=== PATIENT | male | born 1965 | race Caucasian/White ===

== ENCOUNTER 2016-08-11 09:03 | Emergency (ER) | payer OTHER ==
[~2016-08-11] VITALS: Ht 177.8 cm; Wt 98.0 kg
[~2016-08-11 09:03] MED LIST: ACYC-1 PO; ASPI81TA82 PO; BENI40TA30 PO; FISH100020 PO; GLUM1000 PO; MULTTAB50; PROZ20CA11 PO; ROSU20; SAXA5TAB2 PO
[2016-08-11 09:05] VITALS: BP 134/82; PULSE 132; RESP 20; TEMP 98.7; O2SAT 96
[2016-08-11] MEDS ORDERED: ONGL5TAB PO (09:18)
[2016-08-11] MEDS ORDERED: ONCETAB7 PO (09:18)
[2016-08-11] MEDS ORDERED: ROSU20 PO (09:18)
[2016-08-11] MEDS ORDERED: ASPI-110 PO (09:18)
[2016-08-11] MEDS ORDERED: BENI40TA3 PO (09:18)
[2016-08-11] MEDS ORDERED: METF1000 PO (09:18)
[2016-08-11] MEDS ORDERED: CLIN1CAP6 PO (09:19)
[2016-08-11] MEDS ORDERED: LIDOCAINE 1%/EPINEPHrine 1:100,000 SOLN 20 ML VIAL INFIL ONE (09:45)
[2016-08-11] MEDS ORDERED: LIDOCAINE HCL 1% 50 ML VIAL INFIL ONE (10:00)
[2016-08-11] MEDS ORDERED: TRAM50TA PO (10:18)
--- NOTE | 2016-08-11 10:18 | PD ---
HPI . Abscess Chief Complaint: Skin Problem Time Seen by Provider: 09:35 Travel History International Travel<30 days: No Contact w/Intl Traveler<30days: No Traveled to known affect area: No History of Present Illness HPI Patient presents with an abscess on his posterior scalp. It started about a week ago. It has been getting progressively worse. He saw his doctor 3 days ago and was placed on Cleocin. He was instructed to return today for recheck. He states that the [employer] RE[employer]ER that he saw told him that it needed to be lanced and that he needed to come to the emergency department to have it lanced. Pain is minimal. It is rated as 2/10. He has not noted any exacerbating or relieving factor. PFSH Past Medical History Cardiovascular Problems: Yes (HTN) Diabetes: Yes Patient Takes Glucophage: Yes Deep Vein Thrombosis: Yes (HX) Hypertension: Yes Shingles: Yes Social History Alcohol Use: Yes (SOCIALLY) Tobacco Use: Yes (1/2 PPD) Substance Use: No Allergies-Medications (Allergen,Severity, Reaction): Uncoded Allergies: merthiolate (Allergy, Severe, Rash, 10/29/14) Reported Meds & Prescriptions Reported Meds & Active Scripts Active Reported Clindamycin (Clindamycin HCl) 300 Mg Cap 300 Mg PO TID Benicar (Olmesartan) 40 Mg Tab 40 Mg PO DAILY Aspirin 81 (Aspirin) 81 Mg Tabdr 81 Mg PO DAILY Once Daily (Multivitamin) 1 Each Tablet 1 Tab PO DAILY Crestor (Rosuvastatin Calcium) 20 Mg Tab 20 Mg PO DAILY Onglyza (Saxagliptin) 5 Mg Tab 5 Mg PO DAILY Metformin (Metformin HCl) 1,000 Mg Tab 1,000 Mg PO DAILY With a meal Review of Systems Except as stated in HPI: all other systems reviewed are Neg General / Constitutional: No: Fever, Chills Skin: Positive Lesions Physical Exam Narrative GENERAL: Awake and alert and in no acute distress. SKIN: Warm and dry. He has an abscess on the posterior scalp just superior to the hairline. It is fluctuant. It is pointing. It is about the size of a quarter. HEAD: Atraumatic. Normocephalic. EYES: Pupils equal and round. NECK: Trachea midline. CARDIOVASCULAR: Regular rate and rhythm. RESPIRATORY: No accessory muscle use. MUSCULOSKELETAL: No obvious deformities. No edema. NEUROLOGICAL: Awake and alert. No obvious cranial nerve deficits. Motor grossly within normal limits. Normal speech. PSYCHIATRIC: Appropriate mood and affect; insight and judgment normal. Data Data Last Documented VS Vital Signs Date Time Temp Pulse Resp B/P Pulse Ox O2 Delivery O2 Flow Rate FiO2 08/11/16 09:05 98.7 132 20 134/82 96 Room Air Orders Lidocaine 1% Inj (50 Ml) (Xylocaine 1% I (08/11/16 10:00) MDM Medical Decision Making Medical Screen Exam Complete: Yes Emergency Medical Condition: Yes Differential Diagnosis My differential diagnosis includes but is not limited to localized wound infection, cellulitis, abscess Narrative Course This patient presents with an abscess to the posterior scalp. Procedures Procedure Narrative INCISION AND DRAINAGE OF ABSCESS: The area was prepped with Betadine. A subcutaneous wheal of 1% Xylocaine without epi with a total number 7 mL was used to anesthetize the area properly. A number 11 scalpel was used to make a 1 -cm incision across the area of the abscess. The abscess was drained, complex loculations were broken down, and irrigated with normal saline. Quarter inch iodoform packing was placed in the wound. Patient advised to have packing removed in two days. Diagnosis Primary Impression: Abscess Patient Instructions: Abscess (ED), General Instructions Med/Other Pt SpecificInfo: Prescription(s) given Scripts Tramadol 50 Mg Tab50 Mg PO Q4H PRN (PAIN) #12 TAB Ref 0 Prov:Lacy Corcoran MD 08/11/16 Disposition: 01 DISCHARGE HOME Condition: Stable Lacy Corcoran MD Aug 11, 2016 10:18
== END 2016-08-11 10:39 | disposition home or self-care (01) ==
LOC: NEPD 09:03
DX: L02.811 Cutaneous abscess of head [any part, except face] (principal); I10 Essential (primary) hypertension; E11.9 Type 2 diabetes mellitus without complications; F17.200 Nicotine dependence, unspecified, uncomplicated; Z79.84 Long term (current) use of oral hypoglycemic drugs; Z86.718 Personal history of other venous thrombosis and embolism; Z86.69 Personal history of other diseases of the nervous system and sense organs
CPT/HCPCS: 10061